=== PATIENT | female | born 1940 | race Native Hawaiian/Other Pacific Islander ===

== ENCOUNTER 2016-03-01 09:11 | Outpatient (CLI) | payer OTHER | END 2016-03-01 19:47 | disposition home or self-care (01) | LOC: LABW 09:11 | DX: I48.0 Paroxysmal atrial fibrillation (principal); Z79.899 Other long term (current) drug therapy; Z51.81 Encounter for therapeutic drug level monitoring | CPT/HCPCS: 36415; 85610 ==

== ENCOUNTER 2016-03-08 09:05 | Outpatient (CLI) | payer OTHER | END 2016-03-08 19:11 | disposition home or self-care (01) | LOC: LABW 09:05 | DX: I48.0 Paroxysmal atrial fibrillation (principal); Z79.899 Other long term (current) drug therapy; Z51.81 Encounter for therapeutic drug level monitoring | CPT/HCPCS: 36415; 85610 ==

== ENCOUNTER 2016-03-15 09:06 | Outpatient (CLI) | payer OTHER | END 2016-03-15 22:57 | disposition home or self-care (01) | LOC: LABW 09:06 | DX: Z79.899 Other long term (current) drug therapy (principal); I48.0 Paroxysmal atrial fibrillation; Z51.81 Encounter for therapeutic drug level monitoring | CPT/HCPCS: 36415; 85610 ==

== ENCOUNTER 2016-03-21 15:32 | Outpatient (CLI) | payer OTHER | END 2016-03-21 23:08 | disposition home or self-care (01) | LOC: LABW 15:32 | DX: I48.0 Paroxysmal atrial fibrillation (principal); Z79.899 Other long term (current) drug therapy; Z51.81 Encounter for therapeutic drug level monitoring | CPT/HCPCS: 36415; 85610 ==

== ENCOUNTER 2016-03-28 15:50 | Outpatient (CLI) | payer OTHER | END 2016-03-28 20:10 | disposition home or self-care (01) | LOC: LABW 15:50 | DX: Z79.899 Other long term (current) drug therapy (principal); I48.0 Paroxysmal atrial fibrillation; Z51.81 Encounter for therapeutic drug level monitoring | CPT/HCPCS: 36415; 85610 ==

== ENCOUNTER 2016-04-11 08:23 | Outpatient (CLI) | payer OTHER | END 2016-04-11 23:00 | disposition home or self-care (01) | LOC: LABW 08:23 | DX: Z79.899 Other long term (current) drug therapy (principal); Z51.81 Encounter for therapeutic drug level monitoring; I48.0 Paroxysmal atrial fibrillation | CPT/HCPCS: 36415; 85610 ==

== ENCOUNTER 2016-04-21 08:02 | Outpatient (CLI) | payer OTHER | END 2016-04-21 19:20 | disposition home or self-care (01) | LOC: LABW 08:02 | PROVIDERS: Nurse Practitioner Adult Health | DX: E78.2 Mixed hyperlipidemia (principal); Z79.899 Other long term (current) drug therapy; Z51.81 Encounter for therapeutic drug level monitoring | CPT/HCPCS: 36415; 80061; 80076 ==

== ENCOUNTER 2016-05-02 08:20 | Outpatient (CLI) | payer OTHER | END 2016-05-02 14:00 | disposition home or self-care (01) | LOC: LABW 08:20 | DX: Z79.899 Other long term (current) drug therapy (principal); I48.0 Paroxysmal atrial fibrillation; Z51.81 Encounter for therapeutic drug level monitoring | CPT/HCPCS: 36415; 85610 ==

== ENCOUNTER 2016-05-09 08:08 | Outpatient (CLI) | payer OTHER | END 2016-05-09 19:43 | disposition home or self-care (01) | LOC: LABW 08:08 | DX: Z79.899 Other long term (current) drug therapy (principal); I48.0 Paroxysmal atrial fibrillation; Z51.81 Encounter for therapeutic drug level monitoring | CPT/HCPCS: 36415; 85610 ==

== ENCOUNTER 2016-05-13 08:24 | Outpatient (CLI) | payer OTHER | END 2016-05-13 09:24 | disposition home or self-care (01) | LOC: LABW 08:24 | DX: Z79.899 Other long term (current) drug therapy (principal); I48.0 Paroxysmal atrial fibrillation; Z51.81 Encounter for therapeutic drug level monitoring | CPT/HCPCS: 36415; 85610 ==

== ENCOUNTER 2016-05-16 08:06 | Outpatient (CLI) | payer OTHER | END 2016-05-16 19:19 | disposition home or self-care (01) | LOC: LABW 08:06 | DX: Z79.899 Other long term (current) drug therapy (principal); I48.0 Paroxysmal atrial fibrillation; Z51.81 Encounter for therapeutic drug level monitoring | CPT/HCPCS: 36415; 85610 ==

== ENCOUNTER 2016-05-23 07:55 | Outpatient (CLI) | payer OTHER | END 2016-05-23 19:21 | disposition home or self-care (01) | LOC: LABW 07:55 | DX: Z79.899 Other long term (current) drug therapy (principal); I48.0 Paroxysmal atrial fibrillation; Z51.81 Encounter for therapeutic drug level monitoring | CPT/HCPCS: 36415; 85610 ==

== ENCOUNTER 2016-06-06 09:40 | Outpatient (CLI) | payer OTHER | END 2016-06-06 19:11 | disposition home or self-care (01) | LOC: LABW 09:40 | DX: Z79.899 Other long term (current) drug therapy (principal); I48.0 Paroxysmal atrial fibrillation; Z51.81 Encounter for therapeutic drug level monitoring | CPT/HCPCS: 36415; 85610 ==

== ENCOUNTER 2016-06-13 09:10 | Outpatient (CLI) | payer OTHER | END 2016-06-13 19:23 | disposition home or self-care (01) | LOC: LABW 09:10 | DX: Z79.899 Other long term (current) drug therapy (principal); I48.0 Paroxysmal atrial fibrillation; Z51.81 Encounter for therapeutic drug level monitoring | CPT/HCPCS: 36415; 85610 ==

== ENCOUNTER 2016-06-20 09:02 | Outpatient (CLI) | payer OTHER | END 2016-06-20 19:23 | disposition home or self-care (01) | LOC: LABW 09:02 | DX: Z79.899 Other long term (current) drug therapy (principal); I48.0 Paroxysmal atrial fibrillation; Z51.81 Encounter for therapeutic drug level monitoring | CPT/HCPCS: 36415; 85610 ==

== ENCOUNTER 2016-06-27 09:42 | Outpatient (CLI) | payer OTHER | END 2016-06-27 19:58 | disposition home or self-care (01) | LOC: LABW 09:42 | DX: I48.0 Paroxysmal atrial fibrillation (principal); Z79.899 Other long term (current) drug therapy | CPT/HCPCS: 36415; 85610 ==

== ENCOUNTER 2016-07-04 09:41 | Outpatient (CLI) | payer OTHER | END 2016-07-04 19:20 | disposition home or self-care (01) | LOC: LABW 09:41 | DX: Z79.899 Other long term (current) drug therapy (principal); Z51.81 Encounter for therapeutic drug level monitoring; I48.0 Paroxysmal atrial fibrillation | CPT/HCPCS: 36415; 85610 ==

== ENCOUNTER 2016-07-11 09:52 | Outpatient (CLI) | payer OTHER | END 2016-07-11 19:21 | disposition home or self-care (01) | LOC: LABW 09:52 | DX: Z79.899 Other long term (current) drug therapy (principal); I48.0 Paroxysmal atrial fibrillation; Z51.81 Encounter for therapeutic drug level monitoring | CPT/HCPCS: 36415; 85610 ==

== ENCOUNTER 2016-07-26 07:41 | Outpatient (CLI) | payer OTHER | END 2016-07-26 19:28 | disposition home or self-care (01) | LOC: LABW 07:41 | DX: Z79.899 Other long term (current) drug therapy (principal); I48.0 Paroxysmal atrial fibrillation; Z51.81 Encounter for therapeutic drug level monitoring | CPT/HCPCS: 36415; 85610 ==

== ENCOUNTER 2016-08-16 09:21 | Outpatient (CLI) | payer OTHER | END 2016-08-16 19:07 | disposition home or self-care (01) | LOC: LABW 09:21 | DX: Z79.899 Other long term (current) drug therapy (principal); I48.0 Paroxysmal atrial fibrillation; Z51.81 Encounter for therapeutic drug level monitoring | CPT/HCPCS: 36415; 85610 ==

== ENCOUNTER 2016-08-23 09:09 | Outpatient (CLI) | payer OTHER | END 2016-08-23 10:15 | disposition home or self-care (01) | LOC: LABW 09:09 | DX: Z79.899 Other long term (current) drug therapy (principal); I48.0 Paroxysmal atrial fibrillation; Z51.81 Encounter for therapeutic drug level monitoring | CPT/HCPCS: 36415; 85610 ==

== ENCOUNTER 2016-08-29 09:02 | Outpatient (CLI) | payer OTHER | END 2016-08-29 10:05 | disposition home or self-care (01) | LOC: LABW 09:02 | DX: Z79.899 Other long term (current) drug therapy (principal); I48.0 Paroxysmal atrial fibrillation; Z51.81 Encounter for therapeutic drug level monitoring | CPT/HCPCS: 36415; 85610 ==

== ENCOUNTER 2016-09-05 09:58 | Outpatient (CLI) | payer OTHER | END 2016-09-05 11:00 | disposition home or self-care (01) | LOC: LABW 09:58 | DX: Z79.899 Other long term (current) drug therapy (principal); I48.0 Paroxysmal atrial fibrillation; Z51.81 Encounter for therapeutic drug level monitoring | CPT/HCPCS: 36415; 85610 ==

== ENCOUNTER 2016-09-12 09:39 | Outpatient (CLI) | payer OTHER | END 2016-09-12 10:40 | disposition home or self-care (01) | LOC: LABW 09:39 | DX: Z79.899 Other long term (current) drug therapy (principal); I48.0 Paroxysmal atrial fibrillation; Z51.81 Encounter for therapeutic drug level monitoring | CPT/HCPCS: 36415; 85610 ==

== ENCOUNTER 2016-09-26 09:22 | Outpatient (CLI) | payer OTHER | END 2016-09-26 10:25 | disposition home or self-care (01) | LOC: LABW 09:22 | DX: Z79.899 Other long term (current) drug therapy (principal); Z51.81 Encounter for therapeutic drug level monitoring; I48.0 Paroxysmal atrial fibrillation | CPT/HCPCS: 36415; 85610 ==

== ENCOUNTER 2016-10-17 09:27 | Outpatient (CLI) | payer OTHER ==
[2016-10-17 10:00] LABS: PLATELET COUNT 200 K/uL (152-353)
== END 2016-10-17 19:34 | disposition home or self-care (01) ==
LOC: LABW 09:27
PROVIDERS: Nurse Practitioner Adult Health
DX: E78.2 Mixed hyperlipidemia (principal); Z79.899 Other long term (current) drug therapy; Z51.81 Encounter for therapeutic drug level monitoring; I48.0 Paroxysmal atrial fibrillation; I10 Essential (primary) hypertension; E55.9 Vitamin D deficiency, unspecified
CPT/HCPCS: 36415; 80061; 80076; 82306; 82607; 83036; 84439; 84443; 85027; 85610

== ENCOUNTER 2016-11-14 10:49 | Outpatient (CLI) | payer OTHER | END 2016-11-14 11:50 | disposition home or self-care (01) | LOC: LABW 10:49 | DX: Z79.899 Other long term (current) drug therapy (principal); I48.0 Paroxysmal atrial fibrillation; Z51.81 Encounter for therapeutic drug level monitoring | CPT/HCPCS: 85610 ==

== ENCOUNTER 2016-12-05 07:50 | Outpatient (CLI) | payer OTHER | END 2016-12-05 18:56 | disposition home or self-care (01) | LOC: LABW 07:50 | DX: Z79.899 Other long term (current) drug therapy (principal); I48.0 Paroxysmal atrial fibrillation; Z51.81 Encounter for therapeutic drug level monitoring | CPT/HCPCS: 36415; 85610 ==

== ENCOUNTER 2016-12-09 09:24 | Outpatient (CLI) | payer OTHER | END 2016-12-09 10:25 | disposition home or self-care (01) | LOC: LABW 09:24 | DX: Z79.899 Other long term (current) drug therapy (principal); I48.0 Paroxysmal atrial fibrillation; Z51.81 Encounter for therapeutic drug level monitoring | CPT/HCPCS: 36415; 85610 ==

== ENCOUNTER 2016-12-16 08:23 | Outpatient (CLI) | payer OTHER | END 2016-12-16 19:01 | disposition home or self-care (01) | LOC: LABW 08:23 | DX: I48.0 Paroxysmal atrial fibrillation (principal); Z79.899 Other long term (current) drug therapy; Z51.81 Encounter for therapeutic drug level monitoring | CPT/HCPCS: 36415; 85610 ==

== ENCOUNTER 2017-01-02 09:42 | Outpatient (CLI) | payer OTHER | END 2017-01-02 10:45 | disposition home or self-care (01) | LOC: LABW 09:42 | DX: Z79.899 Other long term (current) drug therapy (principal); I48.0 Paroxysmal atrial fibrillation; Z51.81 Encounter for therapeutic drug level monitoring | CPT/HCPCS: 36415; 85610 ==

== ENCOUNTER 2017-01-23 10:34 | Outpatient (CLI) | payer OTHER | END 2017-01-23 18:56 | disposition home or self-care (01) | LOC: LABW 10:34 | DX: Z79.899 Other long term (current) drug therapy (principal); I48.0 Paroxysmal atrial fibrillation; Z51.81 Encounter for therapeutic drug level monitoring | CPT/HCPCS: 36415; 85610 ==

== ENCOUNTER 2017-02-15 10:45 | Outpatient (CLI) | payer OTHER | END 2017-02-15 19:21 | disposition home or self-care (01) | LOC: LABW 10:45 | DX: Z79.01 Long term (current) use of anticoagulants (principal); I48.0 Paroxysmal atrial fibrillation; Z51.81 Encounter for therapeutic drug level monitoring | CPT/HCPCS: 36415; 85610 ==

== ENCOUNTER 2017-02-28 13:56 | Outpatient (CLI) | payer OTHER ==
[2017-02-28 14:18] LABS: PLATELET COUNT 223 K/uL (152-353)
[2017-02-28 14:38] LABS: POTASSIUM 3.7 mmol/L (3.6-5.2); SODIUM 138 mmol/L (136-145)
== END 2017-02-28 21:23 | disposition home or self-care (01) ==
LOC: LAB 13:56
PROVIDERS: Nurse Practitioner Family
DX: I10 Essential (primary) hypertension (principal); M81.0 Age-related osteoporosis without current pathological fracture; I48.91 Unspecified atrial fibrillation; I34.1 Nonrheumatic mitral (valve) prolapse; Z79.01 Long term (current) use of anticoagulants; E78.00 Pure hypercholesterolemia, unspecified; Z51.81 Encounter for therapeutic drug level monitoring; Z79.899 Other long term (current) drug therapy
CPT/HCPCS: 80053; 80061; 83036; 84436; 84443; 85027

== ENCOUNTER 2017-03-06 08:28 | Outpatient (CLI) | payer OTHER | END 2017-03-06 20:19 | disposition home or self-care (01) | LOC: LABW 08:28 | DX: Z79.01 Long term (current) use of anticoagulants (principal); I48.0 Paroxysmal atrial fibrillation; Z51.81 Encounter for therapeutic drug level monitoring | CPT/HCPCS: 36415; 85610 ==

== ENCOUNTER 2017-03-27 10:01 | Outpatient (CLI) | payer OTHER | END 2017-03-27 21:10 | disposition home or self-care (01) | LOC: LABW 10:01 | DX: Z79.01 Long term (current) use of anticoagulants (principal); I48.0 Paroxysmal atrial fibrillation; Z51.81 Encounter for therapeutic drug level monitoring | CPT/HCPCS: 36415; 85610 ==

== ENCOUNTER 2017-04-18 10:00 | Outpatient (CLI) | payer OTHER | END 2017-04-18 19:47 | disposition home or self-care (01) | LOC: LABW 10:00 | DX: Z79.01 Long term (current) use of anticoagulants (principal); I48.0 Paroxysmal atrial fibrillation; Z51.81 Encounter for therapeutic drug level monitoring | CPT/HCPCS: 36415; 85610 ==

== ENCOUNTER 2017-05-09 10:27 | Outpatient (CLI) | payer OTHER | END 2017-05-09 20:01 | disposition home or self-care (01) | LOC: LABW 10:27 | DX: Z79.01 Long term (current) use of anticoagulants (principal); Z51.81 Encounter for therapeutic drug level monitoring; I48.0 Paroxysmal atrial fibrillation | CPT/HCPCS: 36415; 85610 ==

== ENCOUNTER 2017-05-29 11:16 | Outpatient (CLI) | payer OTHER | END 2017-05-29 23:36 | disposition home or self-care (01) | LOC: LABW 11:16 | DX: Z79.01 Long term (current) use of anticoagulants (principal); I48.0 Paroxysmal atrial fibrillation; Z51.81 Encounter for therapeutic drug level monitoring | CPT/HCPCS: 36415; 85610 ==

== ENCOUNTER 2017-06-20 09:03 | Outpatient (CLI) | payer OTHER | END 2017-06-20 22:28 | disposition home or self-care (01) | LOC: LABW 09:03 | DX: Z79.01 Long term (current) use of anticoagulants (principal); I48.0 Paroxysmal atrial fibrillation; Z51.81 Encounter for therapeutic drug level monitoring | CPT/HCPCS: 36415; 85610 ==

== ENCOUNTER 2017-07-05 13:18 | Outpatient (CLI) | payer OTHER ==
[2017-07-05 13:53] LABS: PLATELET COUNT 201 K/uL (152-353)
[2017-07-05 14:22] LABS: POTASSIUM 3.6 mmol/L (3.6-5.2)
== END 2017-07-05 21:32 | disposition home or self-care (01) ==
LOC: LAB 13:18
PROVIDERS: Nurse Practitioner Family
DX: I10 Essential (primary) hypertension (principal); I48.91 Unspecified atrial fibrillation; M81.0 Age-related osteoporosis without current pathological fracture; I34.1 Nonrheumatic mitral (valve) prolapse; Z79.01 Long term (current) use of anticoagulants; E78.00 Pure hypercholesterolemia, unspecified; Z51.81 Encounter for therapeutic drug level monitoring; Z79.899 Other long term (current) drug therapy
CPT/HCPCS: 80053; 80061; 83036; 84436; 84443; 85027

== ENCOUNTER 2017-07-11 07:57 | Outpatient (CLI) | payer OTHER | END 2017-07-11 19:13 | disposition home or self-care (01) | LOC: LABW 07:57 | DX: Z79.01 Long term (current) use of anticoagulants (principal); Z51.81 Encounter for therapeutic drug level monitoring; I48.0 Paroxysmal atrial fibrillation | CPT/HCPCS: 36415; 85610 ==

== ENCOUNTER 2017-08-01 09:06 | Outpatient (CLI) | payer OTHER | END 2017-08-01 22:20 | disposition home or self-care (01) | LOC: LABW 09:06 | DX: Z79.01 Long term (current) use of anticoagulants (principal); Z51.81 Encounter for therapeutic drug level monitoring; I48.0 Paroxysmal atrial fibrillation | CPT/HCPCS: 36415; 85610 ==

== ENCOUNTER 2017-08-08 10:11 | Outpatient (CLI) | payer OTHER | END 2017-08-08 22:49 | disposition home or self-care (01) | LOC: LABW 10:11 | DX: Z79.01 Long term (current) use of anticoagulants (principal); Z51.81 Encounter for therapeutic drug level monitoring; I48.0 Paroxysmal atrial fibrillation | CPT/HCPCS: 36415; 85610 ==

== ENCOUNTER 2017-08-21 09:44 | Outpatient (CLI) | payer OTHER | END 2017-08-21 22:10 | disposition home or self-care (01) | LOC: LABW 09:44 | DX: I48.0 Paroxysmal atrial fibrillation (principal); Z79.01 Long term (current) use of anticoagulants | CPT/HCPCS: 36415; 85610 ==

== ENCOUNTER 2017-08-28 09:34 | Outpatient (CLI) | payer OTHER | END 2017-08-28 19:44 | disposition home or self-care (01) | LOC: LABW 09:34 | DX: Z79.01 Long term (current) use of anticoagulants (principal); I48.0 Paroxysmal atrial fibrillation; Z51.81 Encounter for therapeutic drug level monitoring | CPT/HCPCS: 36415; 85610 ==

== ENCOUNTER 2017-09-04 09:30 | Outpatient (CLI) | payer OTHER | END 2017-09-04 20:18 | disposition home or self-care (01) | LOC: LABW 09:30 | DX: Z79.01 Long term (current) use of anticoagulants (principal); I48.0 Paroxysmal atrial fibrillation; Z51.81 Encounter for therapeutic drug level monitoring | CPT/HCPCS: 36415; 85610 ==

== ENCOUNTER 2017-09-11 09:50 | Outpatient (CLI) | payer OTHER | END 2017-09-11 23:03 | disposition home or self-care (01) | LOC: LABW 09:50 | DX: Z79.01 Long term (current) use of anticoagulants (principal); I48.0 Paroxysmal atrial fibrillation; Z51.81 Encounter for therapeutic drug level monitoring | CPT/HCPCS: 36415; 85610 ==

== ENCOUNTER 2017-09-18 10:22 | Outpatient (CLI) | payer OTHER | END 2017-09-18 20:26 | disposition home or self-care (01) | LOC: LABW 10:22 | DX: Z79.01 Long term (current) use of anticoagulants (principal); I48.0 Paroxysmal atrial fibrillation | CPT/HCPCS: 36415; 85610 ==

== ENCOUNTER 2017-09-25 09:22 | Outpatient (CLI) | payer OTHER | END 2017-09-25 21:59 | disposition home or self-care (01) | LOC: LABW 09:22 | DX: Z79.01 Long term (current) use of anticoagulants (principal); I48.0 Paroxysmal atrial fibrillation; Z51.81 Encounter for therapeutic drug level monitoring | CPT/HCPCS: 36415; 85610 ==

== ENCOUNTER 2017-10-09 09:29 | Outpatient (CLI) | payer OTHER | END 2017-10-09 21:12 | disposition home or self-care (01) | LOC: LABW 09:29 | DX: I48.0 Paroxysmal atrial fibrillation (principal); Z79.01 Long term (current) use of anticoagulants | CPT/HCPCS: 36415; 85610 ==

== ENCOUNTER 2017-10-31 09:24 | Outpatient (CLI) | payer OTHER | END 2017-10-31 23:29 | disposition home or self-care (01) | LOC: LABW 09:24 | DX: I48.0 Paroxysmal atrial fibrillation (principal); Z79.01 Long term (current) use of anticoagulants | CPT/HCPCS: 36415; 85610 ==

== ENCOUNTER 2017-11-20 09:29 | Outpatient (CLI) | payer OTHER | END 2017-11-20 23:28 | disposition home or self-care (01) | LOC: LABW 09:29 | DX: I48.0 Paroxysmal atrial fibrillation (principal); Z79.01 Long term (current) use of anticoagulants | CPT/HCPCS: 36415; 85610 ==

== ENCOUNTER 2017-12-12 07:50 | Outpatient (CLI) | payer OTHER | END 2017-12-12 22:37 | disposition home or self-care (01) | LOC: LABW 07:50 | DX: I48.0 Paroxysmal atrial fibrillation (principal); Z79.01 Long term (current) use of anticoagulants | CPT/HCPCS: 36415; 85610 ==

== ENCOUNTER 2017-12-29 10:20 | Outpatient (CLI) | payer OTHER | END 2017-12-29 21:13 | disposition home or self-care (01) | LOC: LABW 10:20 | DX: Z79.01 Long term (current) use of anticoagulants (principal); I48.0 Paroxysmal atrial fibrillation | CPT/HCPCS: 36415; 85610 ==

== ENCOUNTER 2018-01-05 09:33 | Outpatient (CLI) | payer OTHER | END 2018-01-05 19:47 | disposition home or self-care (01) | LOC: LABW 09:33 | DX: Z79.01 Long term (current) use of anticoagulants (principal); I48.0 Paroxysmal atrial fibrillation | CPT/HCPCS: 36415; 85610 ==

== ENCOUNTER 2018-01-15 09:21 | Outpatient (CLI) | payer OTHER | END 2018-01-15 19:43 | disposition home or self-care (01) | LOC: LABW 09:21 | DX: Z79.01 Long term (current) use of anticoagulants (principal); I48.0 Paroxysmal atrial fibrillation | CPT/HCPCS: 36415; 85610 ==

== ENCOUNTER 2018-01-30 09:24 | Outpatient (CLI) | payer OTHER | END 2018-01-30 21:23 | disposition home or self-care (01) | LOC: LABW 09:24 | DX: I48.0 Paroxysmal atrial fibrillation (principal); Z79.01 Long term (current) use of anticoagulants | CPT/HCPCS: 36415; 85610 ==

== ENCOUNTER 2018-02-19 10:25 | Outpatient (CLI) | payer OTHER | END 2018-02-19 20:03 | disposition home or self-care (01) | LOC: LAB 10:25 | DX: I48.0 Paroxysmal atrial fibrillation (principal); Z79.01 Long term (current) use of anticoagulants | CPT/HCPCS: 36415 ==

== ENCOUNTER 2018-02-26 08:44 | Outpatient (CLI) | payer OTHER | END 2018-02-26 18:58 | disposition home or self-care (01) | LOC: LABW 08:44 | DX: Z79.01 Long term (current) use of anticoagulants (principal); I48.0 Paroxysmal atrial fibrillation | CPT/HCPCS: 36415; 85610 ==

== ENCOUNTER 2018-03-23 10:16 | Outpatient (CLI) | payer OTHER | END 2018-03-23 18:59 | disposition home or self-care (01) | LOC: LABW 10:16 | DX: I48.0 Paroxysmal atrial fibrillation (principal); Z79.01 Long term (current) use of anticoagulants | CPT/HCPCS: 36415; 85610 ==

== ENCOUNTER 2018-03-30 10:29 | Outpatient (CLI) | payer OTHER | END 2018-03-30 22:49 | disposition home or self-care (01) | LOC: LABW 10:29 | DX: I48.0 Paroxysmal atrial fibrillation (principal); Z79.01 Long term (current) use of anticoagulants | CPT/HCPCS: 36415; 85610 ==

== ENCOUNTER 2018-04-02 10:12 | Outpatient (CLI) | payer OTHER | END 2018-04-02 20:52 | disposition home or self-care (01) | LOC: LABW 10:12 | DX: I48.0 Paroxysmal atrial fibrillation (principal); Z79.01 Long term (current) use of anticoagulants | CPT/HCPCS: 36415; 85610 ==

== ENCOUNTER 2018-04-05 09:57 | Outpatient (CLI) | payer OTHER | END 2018-04-05 22:23 | disposition home or self-care (01) | LOC: LABW 09:57 | DX: I48.0 Paroxysmal atrial fibrillation (principal); Z79.899 Other long term (current) drug therapy; Z79.01 Long term (current) use of anticoagulants | CPT/HCPCS: 36415; 85610 ==

== ENCOUNTER 2018-04-09 09:43 | Outpatient (CLI) | payer OTHER | END 2018-04-09 19:41 | disposition home or self-care (01) | LOC: LABW 09:43 | DX: I48.0 Paroxysmal atrial fibrillation (principal); Z79.899 Other long term (current) drug therapy; Z79.01 Long term (current) use of anticoagulants | CPT/HCPCS: 36415; 85610 ==

== ENCOUNTER 2018-04-16 10:05 | Outpatient (CLI) | payer OTHER | END 2018-04-16 19:58 | disposition home or self-care (01) | LOC: LABW 10:05 | DX: I48.0 Paroxysmal atrial fibrillation (principal); Z79.01 Long term (current) use of anticoagulants; Z79.899 Other long term (current) drug therapy | CPT/HCPCS: 36415; 85610 ==

== ENCOUNTER 2018-04-30 09:24 | Outpatient (CLI) | payer OTHER | END 2018-04-30 21:48 | disposition home or self-care (01) | LOC: LABW 09:24 | DX: I48.0 Paroxysmal atrial fibrillation (principal); Z79.01 Long term (current) use of anticoagulants; Z79.899 Other long term (current) drug therapy | CPT/HCPCS: 36415; 85610 ==

== ENCOUNTER 2018-05-07 11:08 | Outpatient (CLI) | payer OTHER | END 2018-05-07 19:47 | disposition home or self-care (01) | LOC: LABW 11:08 | DX: I48.0 Paroxysmal atrial fibrillation (principal); Z79.01 Long term (current) use of anticoagulants; Z79.899 Other long term (current) drug therapy | CPT/HCPCS: 36415; 85610 ==

== ENCOUNTER 2018-05-14 09:42 | Outpatient (CLI) | payer OTHER | END 2018-05-14 22:32 | disposition home or self-care (01) | LOC: LABW 09:42 | DX: I48.0 Paroxysmal atrial fibrillation (principal); Z79.01 Long term (current) use of anticoagulants; Z79.899 Other long term (current) drug therapy | CPT/HCPCS: 36415; 85610 ==

== ENCOUNTER 2018-05-21 09:48 | Outpatient (CLI) | payer OTHER | END 2018-05-21 20:29 | disposition home or self-care (01) | LOC: LABW 09:48 | DX: Z79.01 Long term (current) use of anticoagulants (principal); Z79.899 Other long term (current) drug therapy; I48.0 Paroxysmal atrial fibrillation | CPT/HCPCS: 36415; 85610 ==

== ENCOUNTER 2018-06-04 10:17 | Outpatient (CLI) | payer OTHER | END 2018-06-04 23:00 | disposition home or self-care (01) | LOC: LABW 10:17 | DX: Z79.01 Long term (current) use of anticoagulants (principal); Z79.899 Other long term (current) drug therapy; I48.0 Paroxysmal atrial fibrillation | CPT/HCPCS: 36415; 85610 ==

== ENCOUNTER 2018-06-25 10:44 | Outpatient (CLI) | payer OTHER | END 2018-06-25 19:26 | disposition home or self-care (01) | LOC: LABW 10:44 | DX: Z79.01 Long term (current) use of anticoagulants (principal); Z79.899 Other long term (current) drug therapy; I48.0 Paroxysmal atrial fibrillation | CPT/HCPCS: 36415; 85610 ==

== ENCOUNTER 2018-07-03 09:17 | Outpatient (CLI) | payer OTHER | END 2018-07-03 19:31 | disposition home or self-care (01) | LOC: LABW 09:17 | DX: Z79.01 Long term (current) use of anticoagulants (principal); Z79.899 Other long term (current) drug therapy; I48.0 Paroxysmal atrial fibrillation | CPT/HCPCS: 36415; 85610 ==

== ENCOUNTER 2018-07-09 07:46 | Outpatient (CLI) | payer OTHER | END 2018-07-09 22:43 | disposition home or self-care (01) | LOC: LABW 07:46 | DX: Z79.01 Long term (current) use of anticoagulants (principal); Z79.899 Other long term (current) drug therapy; I48.0 Paroxysmal atrial fibrillation | CPT/HCPCS: 36415; 85610 ==

== ENCOUNTER 2018-07-16 09:24 | Outpatient (CLI) | payer OTHER ==
[2018-07-16 09:56] LABS: PLATELET COUNT 238 K/uL (152-353)
[2018-07-16 10:15] LABS: POTASSIUM 3.8 mmol/L (3.6-5.2)
== END 2018-07-16 19:17 | disposition home or self-care (01) ==
LOC: LABW 09:24
PROVIDERS: Nurse Practitioner Adult Health
DX: Z00.00 Encounter for general adult medical examination without abnormal findings (principal); Z79.01 Long term (current) use of anticoagulants; Z79.899 Other long term (current) drug therapy; I48.0 Paroxysmal atrial fibrillation; I10 Essential (primary) hypertension; E78.00 Pure hypercholesterolemia, unspecified; E53.8 Deficiency of other specified B group vitamins; E55.9 Vitamin D deficiency, unspecified
CPT/HCPCS: 36415; 80053; 82306; 82607; 83036; 84439; 84443; 85027; 85610

== ENCOUNTER 2018-07-31 08:28 | Outpatient (CLI) | payer OTHER | END 2018-07-31 19:14 | disposition home or self-care (01) | LOC: LABW 08:28 | DX: I48.0 Paroxysmal atrial fibrillation (principal); Z79.899 Other long term (current) drug therapy; Z79.01 Long term (current) use of anticoagulants | CPT/HCPCS: 36415; 85610 ==

== ENCOUNTER 2018-08-21 10:41 | Outpatient (CLI) | payer OTHER | END 2018-08-21 19:46 | disposition home or self-care (01) | LOC: LABW 10:41 | DX: I48.0 Paroxysmal atrial fibrillation (principal); Z79.01 Long term (current) use of anticoagulants; Z79.899 Other long term (current) drug therapy | CPT/HCPCS: 36415; 85610 ==

== ENCOUNTER 2018-10-02 10:54 | Outpatient (CLI) | payer OTHER | END 2018-10-02 23:16 | disposition home or self-care (01) | LOC: LABW 10:54 | DX: I48.0 Paroxysmal atrial fibrillation (principal); Z79.01 Long term (current) use of anticoagulants; Z79.899 Other long term (current) drug therapy | CPT/HCPCS: 36415; 85610 ==

== ENCOUNTER 2018-10-08 09:06 | Outpatient (CLI) | payer OTHER | END 2018-10-08 20:30 | disposition home or self-care (01) | LOC: LABW 09:06 | DX: I48.0 Paroxysmal atrial fibrillation (principal); Z79.01 Long term (current) use of anticoagulants; Z79.899 Other long term (current) drug therapy | CPT/HCPCS: 36415; 85610 ==

== ENCOUNTER 2018-10-15 09:17 | Outpatient (CLI) | payer OTHER | END 2018-10-15 13:00 | disposition home or self-care (01) | LOC: LABW 09:17 | DX: I48.0 Paroxysmal atrial fibrillation (principal); Z79.01 Long term (current) use of anticoagulants; Z79.899 Other long term (current) drug therapy | CPT/HCPCS: 36415; 85610 ==

== ENCOUNTER 2018-10-22 09:11 | Outpatient (CLI) | payer OTHER ==
[2018-10-22 09:27] LABS: PLATELET COUNT 234 K/uL (152-353)
[2018-10-22 09:37] LABS: POTASSIUM 4.3 mmol/L (3.6-5.2)
== END 2018-10-22 23:59 | disposition home or self-care (01) ==
LOC: LABW 09:11
PROVIDERS: Specialist
DX: Z01.810 Encounter for preprocedural cardiovascular examination (principal); R93.1 Abnormal findings on diagnostic imaging of heart and coronary circulation; I48.0 Paroxysmal atrial fibrillation; Z79.01 Long term (current) use of anticoagulants; Z79.899 Other long term (current) drug therapy
CPT/HCPCS: 36415; 80053; 85027; 85610

== ENCOUNTER 2018-11-16 14:14 | Outpatient (CLI) | payer OTHER | END 2018-11-16 19:23 | disposition home or self-care (01) | LOC: LABW 14:14 | DX: I48.0 Paroxysmal atrial fibrillation (principal); Z79.01 Long term (current) use of anticoagulants; Z79.899 Other long term (current) drug therapy | CPT/HCPCS: 36415; 85610 ==

== ENCOUNTER 2018-12-03 10:21 | Outpatient (CLI) | payer OTHER | END 2018-12-03 22:08 | disposition home or self-care (01) | LOC: LABW 10:21 | DX: I48.0 Paroxysmal atrial fibrillation (principal); Z79.01 Long term (current) use of anticoagulants; Z79.899 Other long term (current) drug therapy | CPT/HCPCS: 36415; 85610 ==

== ENCOUNTER 2019-01-22 14:20 | Outpatient (CLI) | payer OTHER | END 2019-01-22 19:41 | disposition home or self-care (01) | LOC: LABW 14:20 | DX: I48.0 Paroxysmal atrial fibrillation (principal); Z79.01 Long term (current) use of anticoagulants; Z79.899 Other long term (current) drug therapy | CPT/HCPCS: 36415; 85610 ==

== ENCOUNTER 2019-02-25 09:33 | Outpatient (CLI) | payer OTHER | END 2019-02-25 21:48 | disposition home or self-care (01) | LOC: LABW 09:33 | DX: I48.0 Paroxysmal atrial fibrillation (principal); Z79.01 Long term (current) use of anticoagulants; Z79.899 Other long term (current) drug therapy | CPT/HCPCS: 36415; 85610 ==

== ENCOUNTER 2019-03-04 09:16 | Outpatient (CLI) | payer OTHER | END 2019-03-04 22:32 | disposition home or self-care (01) | LOC: LABW 09:16 | DX: I48.0 Paroxysmal atrial fibrillation (principal); Z79.01 Long term (current) use of anticoagulants; Z79.899 Other long term (current) drug therapy | CPT/HCPCS: 36415; 85610 ==

== ENCOUNTER 2019-03-11 11:47 | Outpatient (CLI) | payer OTHER | END 2019-03-11 19:27 | disposition home or self-care (01) | LOC: LABW 11:47 | DX: I48.0 Paroxysmal atrial fibrillation (principal); Z79.01 Long term (current) use of anticoagulants; Z79.899 Other long term (current) drug therapy | CPT/HCPCS: 36415; 85610 ==

== ENCOUNTER 2019-03-25 10:48 | Outpatient (CLI) | payer OTHER | END 2019-03-25 19:32 | disposition home or self-care (01) | LOC: LABW 10:48 | DX: I48.0 Paroxysmal atrial fibrillation (principal); Z79.01 Long term (current) use of anticoagulants; Z79.899 Other long term (current) drug therapy | CPT/HCPCS: 36415; 85610 ==

== ENCOUNTER 2019-04-15 13:21 | Outpatient (CLI) | payer OTHER | END 2019-04-15 21:37 | disposition home or self-care (01) | LOC: LABW 13:21 | DX: I48.0 Paroxysmal atrial fibrillation (principal); Z79.899 Other long term (current) drug therapy; Z79.01 Long term (current) use of anticoagulants | CPT/HCPCS: 36415; 85610 ==

== ENCOUNTER 2019-06-03 09:19 | Outpatient (CLI) | payer OTHER | END 2019-06-03 19:15 | disposition home or self-care (01) | LOC: LABW 09:19 | DX: I48.0 Paroxysmal atrial fibrillation (principal); Z79.899 Other long term (current) drug therapy; Z79.01 Long term (current) use of anticoagulants | CPT/HCPCS: 36415; 85610 ==

== ENCOUNTER 2019-06-10 09:58 | Outpatient (CLI) | payer OTHER | END 2019-06-10 22:38 | disposition home or self-care (01) | LOC: LABW 09:58 | DX: I48.0 Paroxysmal atrial fibrillation (principal); Z79.01 Long term (current) use of anticoagulants; Z79.899 Other long term (current) drug therapy | CPT/HCPCS: 36415; 85610 ==

== ENCOUNTER 2019-06-17 08:04 | Outpatient (CLI) | payer OTHER | END 2019-06-17 20:07 | disposition home or self-care (01) | LOC: LABW 08:04 | DX: I48.0 Paroxysmal atrial fibrillation (principal); Z79.01 Long term (current) use of anticoagulants; Z79.899 Other long term (current) drug therapy | CPT/HCPCS: 36415; 85610 ==

== ENCOUNTER 2020-04-11 20:36 | Emergency (ER) | payer OTHER ==
[~2020-04-11] VITALS: Ht 157.5 cm; Wt 42.2 kg
[2020-04-11 21:58] LABS: PLATELET COUNT 180 K/uL (152-353)
[2020-04-11 22:04] LABS: POTASSIUM 3.7 mmol/L (3.6-5.2)
[2020-04-11 23:30] VITALS: TEMP 98
[2020-04-11 23:52] VITALS: BP 163/86
== END 2020-04-11 23:58 | disposition short-term general hospital (02) ==
LOC: ED 20:36
DX: S72.144A Nondisplaced intertrochanteric fracture of right femur, initial encounter for closed fracture (principal); Z03.818 Encounter for observation for suspected exposure to other biological agents ruled out; W01.0XXA Fall on same level from slipping, tripping and stumbling without subsequent striking against object, initial encounter; Y92.89 Other specified places as the place of occurrence of the external cause
CPT/HCPCS: 80053; 85027; 87635; 96360; 96361; 96365; 96374; 96375; 96376; 99285; J2270; J2405; J2550; U0003